=== PATIENT | male | born 1960 | race Caucasian/White ===

== ENCOUNTER → 2017-11-16 | Outpatient (CLI) | payer BC ==
--- NOTE | 2017-11-16 15:35 | Diagnostic Imaging Report ---
EXAMINATION: Magnetic resonance imaging of the left shoulder without contrast. DATE: November 16, 2017. COMPARISON: None. HISTORY: 57-year-old male, left shoulder pain and tightness. History of adhesive capsulitis. TECHNIQUE: Magnetic Resonance Imaging sequences were performed of the shoulder without contrast. FINDINGS: ROTATOR CUFF, LIGAMENTS, TENDONS, AND MUSCLES: There is mild infraspinatus tendinopathy. The supraspinatus, subscapularis and teres minor tendons are intact. There is severe fatty atrophy of the teres minor muscle without identified mass within the quadrilateral space. LONG HEAD OF BICEPS: The biceps labral attachment and long head of the biceps tendon is intact. The long head of the biceps tendon is normally positioned within the bicipital groove. GLENOHUMERAL JOINT: The humeral head is well positioned relative to the glenoid. The labrum is grossly intact. There is no identified paralabral cyst. The articular cartilage is grossly intact. There is no joint effusion. There is loss of normal fat attenuation in the rotator interval which is perhaps best illustrated on sagittal T2 fat saturation sequence image 7. There is minimal thickening of the axillary pouch. ACROMIOCLAVICULAR JOINT: The acromioclavicular joint is normally aligned. The coracoclavicular and coracoacromial ligaments are intact. There are no degenerative changes of the acromioclavicular joint. BONE: The bones all have normal configuration. The bone marrow signal is within normal limits. Specifically, negative for fracture, osteomyelitis, osteonecrosis, or marrow replacing process. BURSAE AND SOFT TISSUES: The bursae and soft tissue surrounding the shoulder are unremarkable. IMPRESSION: 1. Mild infraspinatus tendinopathy. Negative for rotator cuff tendon tear. 2. Intact acromioclavicular joint. 3. Grossly intact labrum. No glenohumeral joint effusion. 4. Loss of normal fat attenuation in the rotator interval and slight thickening of the axillary pouch which are MRI findings which may be seen with adhesive capsulitis which would be a clinical diagnosis. 5. No acute fracture, bone contusion or evidence of osteonecrosis. Dictated by: Dictated on workstation # [id number]
== END ==
LOC: RAD 13:44
PROVIDERS: ATTEND Orthopaedic Surgery
DX: M67.814 Other specified disorders of tendon, left shoulder (principal); M75.02 Adhesive capsulitis of left shoulder
CPT/HCPCS: 73221